=== PATIENT | female | born 1985 | race American Indian/Alaskan Native ===

== ENCOUNTER 2021-08-11 12:12 | Outpatient (CLI) | payer MEDICAID ==
[2021-08-11] MEDS ORDERED: LACTATED RINGERS 1,000 ML ONE (15:11)
[2021-08-11] MEDS ORDERED: ONDANSETRON 4 MG/2 ML INJ IV NR (15:35)
[2021-08-11] MEDS ORDERED: LACTATED RINGERS 1000 ML IV SOLN IV SCH (16:00)
[2021-08-11 18:26] VITALS: BP 113/60
== END 2021-08-11 18:33 | disposition home or self-care (01) ==
LOC: TRG 12:12 → APU 12:12 → TRG 18:33
PROVIDERS: ATTEND Obstetrics & Gynecology
DX: O26.893 Other specified pregnancy related conditions, third trimester (principal); R10.2 Pelvic and perineal pain; R25.2 Cramp and spasm; O21.2 Late vomiting of pregnancy; Z3A.30 30 weeks gestation of pregnancy
CPT/HCPCS: 59025; 96365; J2405; 96360; 96361; 96374

== ENCOUNTER 2021-09-04 10:42 | Outpatient (CLI) | payer MEDICAID ==
[2021-09-04 11:34] VITALS: BP 117/63
[2021-09-04 12:20] LABS: Bilirubin,Urine NEG (Negative); Blood,Urine NEG (Negative); Color,Urine Yellow (Yellow); Protein,Urine <15 mg/dL mg/dL (Negative); Urobilinogen,Urine < 2.0 mg/dL (<2.0)
[2021-09-04 12:40] LABS: Bacteria,Urine 2+ /HPF (Negative); Hyaline Casts,Urine 2 /LPF; Mucus,Urine FEW /HPF
[2021-09-04] MEDS ORDERED: LACTATED RINGERS 500 ML IV ONE (13:00)
== END 2021-09-04 15:36 | disposition home or self-care (01) ==
LOC: TRG 10:42 → APU 10:44 → TRG 15:36
PROVIDERS: ATTEND Obstetrics & Gynecology
DX: O42.913 Preterm premature rupture of membranes, unspecified as to length of time between rupture and onset of labor, third trimester (principal); Z3A.33 33 weeks gestation of pregnancy
CPT/HCPCS: 36415; 59025; 81001; 84112; 87086

== ENCOUNTER 2021-10-11 13:36 | Outpatient (CLI) | payer MEDICAID ==
[2021-10-11 14:14] VITALS: BP 133/87
--- NOTE | 2021-10-11 15:16 | Ultrasound Report ---
ULTRASOUND OBSTETRIC LIMITED ULTRASOUND BIOPHYSICAL PROFILE INDICATION / CLINICAL INFORMATION: decreased fm. Clinical Gestational Age (GA): 38.6 weeks.days COMPARISON: None available. FINDINGS: BREATHING MOVEMENT = 2 GROSS BODY MOVEMENT = 2 TONE = 2 QUALITATIVE AMNIOTIC FLUID VOLUME = 2 TOTAL BIOPHYSICAL SCORE = 8/8 HEART RATE (beats per minute): 154 AMNIOTIC FLUID INDEX (cm) = 7.6 (normal = 7-24 cm) PRESENTATION: Cephalic. ADDITIONAL FINDINGS: None. IMPRESSION: 1. Biophysical Score = 8/8 Signer Name: Harley Quiroz MD Signed: 10/11/2021 3:12 PM Workstation Name: [email or web address]
== END 2021-10-11 15:10 | disposition home or self-care (01) ==
LOC: TRG 13:36 → APU 13:37 → TRG 15:10
PROVIDERS: ATTEND Obstetrics & Gynecology
DX: O36.8130 Decreased fetal movements, third trimester, not applicable or unspecified (principal); Z3A.38 38 weeks gestation of pregnancy
CPT/HCPCS: 59025; 76815; 76819

== ENCOUNTER 2021-10-19 15:33 | Outpatient (CLI) | payer MEDICAID ==
[2021-10-19 16:49] VITALS: BP 122/73
== END 2021-10-19 19:24 | disposition home or self-care (01) ==
LOC: TRG 15:33 → APU 15:38 → TRG 19:24
PROVIDERS: ATTEND Obstetrics & Gynecology
DX: O42.92 Full-term premature rupture of membranes, unspecified as to length of time between rupture and onset of labor (principal); Z3A.40 40 weeks gestation of pregnancy
CPT/HCPCS: 36415; 84112

== ENCOUNTER 2021-10-22 21:09 | Inpatient (IN) | payer MEDICAID ==
[2021-10-22] MEDS ORDERED: LACTATED RINGERS 2,000 ML ONE (23:06)
[2021-10-22 23:43] LABS: Hematocrit 31.4 % (30.3-42.9); Hemoglobin 10.2 gm/dl (10.1-14.3); Mean Corpuscular HGB Conc 32 % (30-34); Red Blood Count 4.87 M/mm3 (3.65-5.03)
[2021-10-22] MEDS ORDERED: LOPERAMIDE 2 MG CAP PO PRN (23:43)
[2021-10-22] MEDS ORDERED: miSOPROStol 200 MCG TAB PR PRN (23:43)
[2021-10-22] MEDS ORDERED: TERBUTALINE 1 MG/1 ML INJ SUB-Q PRN (23:43)
[2021-10-22] MEDS ORDERED: LIDOCAINE (2%) 20 MG/1 ML VIAL 20 ML MDV INFILTRATI ONE (23:43)
[2021-10-22] MEDS ORDERED: ONDANSETRON 4 MG/2 ML INJ IV PRN (23:43)
[2021-10-22] MEDS ORDERED: METHYLERGONOVINE MALEATE 0.2 MG/ML VIAL IM PRN (23:43)
[2021-10-22] MEDS ORDERED: PENICILLIN G POTASSIUM 5 MIL.UNITS in SODIUM CHLORIDE 0.9% 50 ML IV ONE (23:43)
[2021-10-22] MEDS ORDERED: CARBOPROST TROMETHAMINE 250 MCG/1 ML INJ IM PRN (23:43)
[2021-10-22] MEDS ORDERED: ACETAMINOPHEN 325 MG TAB PO PRN (23:43)
[2021-10-22] MEDS ORDERED: OXYTOCIN 10 UNIT/1 ML INJ IM PRN (23:43)
[2021-10-22] MEDS ORDERED: MINERAL OIL 30 ML ORAL LIQD PO PRN (23:43)
[2021-10-22] MEDS ORDERED: BUTORPHANOL 2 MG/1 ML INJ IV PRN ×2 (23:43)
[2021-10-22] MEDS ORDERED: NALOXONE 0.4 MG/1 ML INJ IV PRN (23:43)
[2021-10-22] MEDS ORDERED: ePHEDrine SULFATE 50 MG/1 ML INJ IV PRN (23:43)
[2021-10-22] MEDS ORDERED: LACTATED RINGERS 1,000 ML IV SCH (23:45)
[2021-10-22] MEDS ORDERED: OXYTOCIN DRIP 30 UNITS/500 ML BAG IV SCH ×2 (23:45)
[2021-10-22 23:55] LABS: Color,Urine Colorless (Yellow)
--- NOTE | 2021-10-22 23:59 | Ultrasound Report ---
ULTRASOUND BIOPHYSICAL PROFILE Ultrasound obstetrical follow-up INDICATION / CLINICAL INFORMATION: WELL BEING. COMPARISON: None available. FINDINGS: BREATHING MOVEMENT = 0 GROSS BODY MOVEMENT = 2 TONE = 2 QUALITATIVE AMNIOTIC FLUID VOLUME = 2 TOTAL BIOPHYSICAL SCORE = 10/02 AMNIOTIC FLUID INDEX (cm) = 8.7 PRESENTATION: Cephalic. HEART RATE (beats per minute): 141 Biparietal diameter measures 38 weeks and 4 days. Head circumference measures 40 weeks and 1 day. Abd ominal circumference measures 38 weeks and 6 days femur length measures 38 weeks and 4 days. Estimated weight is 3625 g IMPRESSION: 1. biophysical profile = 08/02 2. Single live intrauterine with ultrasound age of 39 weeks and 0 days. Signer Name: Matt Anne MD Signed: 10/22/2021 11:54 PM Workstation Name: [email or web address]
[2021-10-23 00:02] LABS: RBC,Urine < 1.0 /HPF (0.0-6.0)
[2021-10-23 00:03] LABS: Alanine Aminotransferase 15 units/L (7-56)
[2021-10-23 00:15] LABS: Uric Acid 4.4 mg/dL (3.5-7.6)
[2021-10-23 00:17] LABS: Mean Corpuscular Volume 65 fl (79-97); Platelet Count 185 K/mm3 (140-440); Red Cell Distribution Width 20.4 % (13.2-15.2)
--- NOTE | 2021-10-23 00:40 | History and Physical Report ---
History of Present Illness Date of examination: 10/23/21 Date of admission: 10/22/21 23:43 Chief complaint: Contractions Past History Past Medical History: no pertinent history, other (Sickle cell trait) Past Surgical History: D&C Family/Genetic History: diabetes, cancer, sickle cell/trait - Obstetrical History Expected Date of Delivery: 10/19/21 Actual Gestation: 40 Week(s) 4 Day(s) : 4 Para: 4 Hx # Term Pregnancies: 1 Number of Pregnancies: 1 Spontaneous Abortions: 0 Induced : 1 Number of Living Children: 2 #1 Gender: Male year: , Birthweight: 5 lb 14.4 oz Method of Delivery: Vaginal Gestational age at delivery: 35 #2 Infant Gender: Male year: , Birthweight: 7 lb 11.2 oz Method of Delivery: Vaginal Gestational age at delivery: 40 Medications and Allergies Allergies Allergy/AdvReac Type Severity Reaction Status Date / Time No Known Allergies Allergy Unverified 08/11/21 15:30 Active Meds: Active Medications Acetaminophen (Acetaminophen 325 Mg Tab) 650 mg PO Q4H PRN PRN Reason: Pain, Mild (1-3) Butorphanol Tartrate (Butorphanol 2 Mg/1 Ml Inj) 1 mg IV Q2H PRN PRN Reason: Pain, Moderate(4-6) LABOR PAIN Butorphanol Tartrate (Butorphanol 2 Mg/1 Ml Inj) 2 mg IV Q2H PRN PRN Reason: Pain , Severe (7-10) Carboprost Tromethamine (Carboprost Tromethamine 250 Mcg/1 Ml Inj) 250 mcg IM ONCE PRN PRN Reason: Uterine Bleeding Ephedrine Sulfate (Ephedrine Sulfate 50 Mg/1 Ml Inj) 10 mg IV Q2M PRN PRN Reason: Hypotension Oxytocin/Sodium Chloride (Pitocin/Ns 30 Unit/500ml) 30 units in 500 mls @ 2 mls/hr IV TITR RAFAEL; Protocol Lactated Ringer's (Lactated Ringers) 1,000 mls @ 125 mls/hr IV DIRECT RAFAEL Oxytocin/Sodium Chloride (Pitocin/Ns 30 Unit/500ml) 30 units in 500 mls @ 40 mls/hr IV TITR RAFAEL; Protocol Penicillin G Potassium 2.5 mil (.units/ Sodium Chloride) 50 mls @ 100 mls/hr IV Q4H RAFAEL; Protocol Loperamide HCl (Loperamide 2 Mg Cap) 2 mg PO ONCE PRN PRN Reason: give with Hemabate Methylergonovine Maleate (Methylergonovine Maleate 0.2 Mg/Ml Vial) 0.2 mg IM ONCE PRN PRN Reason: Uterine Bleeding Mineral Oil (Mineral Oil 30 Ml Oral Liqd) 30 ml PO QHS PRN PRN Reason: Constipation Misoprostol (Misoprostol 200 Mcg Tab) 800 mcg AR ONCE PRN PRN Reason: Uterine Bleeding Naloxone HCl (Naloxone 0.4 Mg/1 Ml Inj) 0.1 mg IV Q2MIN PRN PRN Reason: Res Rate </= 8 or 02 SAT < 92% Ondansetron HCl (Ondansetron 4 Mg/2 Ml Inj) 4 mg IV Q8H PRN PRN Reason: Nausea And Vomiting Oxytocin (Oxytocin 10 Unit/1 Ml Inj) 10 unit IM ONCE PRN PRN Reason: Uterine Bleeding Terbutaline Sulfate (Terbutaline 1 Mg/1 Ml Inj) 0.25 mg SUB-Q ONCE PRN PRN Reason: Hyperstimulation/Hypertonicity - Vital Signs Vital signs: Vital Signs Temp 98.3 F 10/22/21 21:26 Temp Pulse Resp BP Pulse Ox 97.9 F 107 H 17 125/79 99 10/22/21 23:35 10/23/21 00:32 10/22/21 23:35 10/22/21 23:37 10/23/21 00:32 - Physical Exam Breasts: Positive: deferred Cardiovascular: Regular rate Lungs: Positive: Clear to auscultation Abdomen: Positive: normal appearance, soft Genitourinary (Female): Positive: normal external genitalia Vagina: Positive: normal moisture Uterus: Positive: enlarged Extremities: Positive: normal Deep Tendon Reflex Grade: Normal +2 Results Result Diagrams: 10/22/21 23:00 10/22/21 23:00 Abnormal lab results 10/22/21 10/22/21 Range/Units 23:00 23:00 MCV 65 L (79-97) fl MCH 21 L (28-32) pg RDW 20.4 H (13.2-15.2) % Creatinine 0.5 L (0.6-1.2) mg/dL Lactate Dehydrogenase 291 H (91-180) units/L All other labs normal. Assessment and Plan A: @ 40.4wks contractions elevated bp GBS pos BPP 6/8 P: Admit to L&D Continuous TOCO/EFM PIH labs Antibiotic admin for GBS Anticipated delivery
[2021-10-23] MEDS ORDERED: NALOXONE 0.4 MG/1 ML INJ IV PRN (01:14)
[2021-10-23] MEDS ORDERED: ePHEDrine SULFATE 50 MG/1 ML INJ IV PRN (01:14)
--- NOTE | 2021-10-23 01:17 | Anesthesia Consultation ---
Anesthesia Consult and Med Hx Date of service: 10/23/21 - Airway Anesthetic Teeth Evaluation: Poor ROM Head & Neck: Adequate Mental/Hyoid Distance: Adequate Mallampati Class: Class II Intubation Access Assessment: Probably Good - Pulmonary Exam CTA: Yes - Cardiac Exam Cardiac Exam: RRR - Pre-Operative Health Status ASA Pre-Surgery Classification: ASA2 Proposed Anesthetic Plan: Epidural - Pulmonary Hx Smoking: No Hx Asthma: No COPD: No Hx Pneumonia: No - Cardiovascular System Hx Hypertension: No - Central Nervous System Hx Seizures: No Hx Psychiatric Problems: No - Endocrine Hx Renal Disease: No Hx End Stage Renal Disease: No Hx Hypothyroidism: No Hx Hyperthyroidism: No - Hematic Hx Anemia: No Hx Sickle Cell Disease: No - Other Systems Hx Alcohol Use: Yes (social prior to ) Hx Substance Use: No Hx Obesity: Yes
--- NOTE | 2021-10-23 01:19 | Progress Note ---
Labor Epidural - Labor Epidural Start Time: 00:44 Stop Time: 01:00 Performed by:: DE BERMUDEZ Procedure: Patient is requesting a laboring epidural for laboring pain. Patient IDed, H&P reviewed, all questions and concerns were answered, and consent was signed. Timeout was performed at bedside. Patient in sitting position. Sterile prep and drape was performed. [3] ml of 1% lidocaine skin wheal at L[3]- L [4]. 17- gauge Tuohy epidural needle was advanced to loss of resistance with saline technique 6cm. Single dural perforation via 25 guage spinal needle placed through the shaft of Epidural needle. Positive CSF via spinal needle. Negative CSF negative blood via Epidural needle. Epidural catheter advanced to [10] centimeters. [NEGATIVE] Aspiration [NEGATIVE] test dose. Negative Paresthesia. Sterile dressing applied. Patient tolerated procedure.
[2021-10-23] MEDS ORDERED: fentaNYL-BUPIV 2 MCG/ML-0.125% 200 MCG/100 ML BAG EPIDURAL SCH (02:00)
[2021-10-23] MEDS ORDERED: PENICILLIN G POTASSIUM 2.5 MIL.UNITS in SODIUM CHLORIDE 0.9% 50 ML IV SCH (04:00)
--- NOTE | 2021-10-23 05:52 | Procedure Note ---
OB Delivery Note - Delivery Date of Delivery: 10/23/21 Surgeon: ABE OCONNELL Estimated blood loss: 200cc - Vaginal Delivery presentation: vertex Delivery position: OA Intrapartum events: shoulder dystocia Delivery induction: oxytocin Delivery augmentation: rupture of membranes Delivery monitor: external FHT, external uterine, internal FHT Route of delivery: Delivery placenta: spontaneous Delivery cord: 3 umbilical vessels Episiotomy: none Delivery laceration: none Anesthesia: epidural Delivery comments: I was called to room by charge nurse for FHR in the 50-60's and pt 9cm per CNMW and when I entered room pt was in knee chest position with oxygen on her face. Scalp stimulation done with good response. With the next contraction, pt counseled on pushing like having a bowel movement and with both my index and 3rd finger the cervix was reduced without difficulty. SAVD of viable male infant with shoulder dystocia relieved in Kaci position and suprapubic pressure from Brenden (charge nurse) and modified Ritgen's maneuver followed by delivered of right posterior shoulder with counter clockwise screw maneuver, infant suctioned, stimulated and cord clamped and baby taken to warmer and treated by NICU team. Umbilical artery cord gas sent with pH 7.15 and BE -4.7. Large amount of meconium passed on floor noted after baby delivered and transported to warmer. Spontaneous delivery of intact placenta with 3vessel cord. Pt sustained no lacerations when cervix visualized using right angle and ring forceps and no lacerations to perineum either. Bimanual exam done and fundus firm and Pt receiving IV pitocin. Mom and baby stable. EFW 3630g - A at 1 minute: 5 at 5 minutes: 7 Infant Gender: Male (Umb Artery gas pH 7.15 and BE -4.7; wt 3630g)
--- NOTE | 2021-10-23 05:53 | Event Note ---
Date: 10/23/21 (0500) Patient having decel post rupture Vag exam /-1. Assisted Rn with position changes, fluid bolus, pitocin at 2mu dc'ed, and oxygen NR. Decel still down to 60's x3 min, ISE placed, pt was placed in hand and knee position. VE: still same, attempted to push, pt not pushing well. Dr. Payne called. Once MD entered, she assisted pt on her back, bed broken down, cervix was reduced and MD delivered infant.
[2021-10-23 05:55] LABS: ABG Base Excess -4.7 mmol/L (-2.0-3.0); ABG HCO3 26.2 mmol/L (20.0-26.0); ABG Methemoglobin 0.9 % (0.0-1.5); ABG Oxygen Saturation 17.9 % (95.0-99.0); ABG PCO2 76.7 mm Hg
[2021-10-23 05:58] LABS: ABG PH 7.151 pH Units (7.350-7.450); ABG PO2 13.7 mm Hg (80.0-90.0)
[2021-10-23] MEDS ORDERED: diphenhydrAMINE 25 MG CAP PO PRN ×2 (08:00→09:55)
[2021-10-23] MEDS ORDERED: ACETAMINOPHEN 325 MG TAB PO PRN (09:55)
[2021-10-23] MEDS ORDERED: WITCH HAZEL/ GLYCERIN PAD TP PRN (09:55)
[2021-10-23] MEDS ORDERED: ONDANSETRON 4 MG/2 ML INJ IV PRN (09:55)
[2021-10-23] MEDS ORDERED: oxyCODONE /ACETAMINOPHEN 5-325MG TAB PO PRN (09:55)
[2021-10-23] MEDS ORDERED: HYDROCORTISONE 25 MG RECTAL SUPP PR PRN (09:55)
[2021-10-23] MEDS ORDERED: OXYTOCIN DRIP 30 UNITS/500 ML BAG IV SCH (09:55)
[2021-10-23] MEDS ORDERED: LANOLIN/ZINC/DIMETHICONE (LANSINOH) 7 GM TP PRN (09:55)
[2021-10-23] MEDS ORDERED: PROMETHAZINE 25 MG RECT SUPP PR PRN (09:55)
[2021-10-23] MEDS ORDERED: PROMETHAZINE 25 MG TAB PO PRN (09:55)
[2021-10-23] MEDS ORDERED: BENZOCAINE/MENTHOL 20/0.5% TOP SPRAY 56 GM TP PRN (09:55)
[2021-10-23] MEDS ORDERED: MAGNESIUM HYDROXIDE (MOM) ORAL LIQD UDC PO PRN (09:55)
[2021-10-23] MEDS: PRENATAL VIT27-FE FUMARATE-FOLIC ACID VIT TAB PO SCH (11:55)
[2021-10-23] MEDS: IBUPROFEN 800 MG TAB PO SCH ×2 (11:55→18:55)
[2021-10-24 11:00] LABS: Hemoglobin 9.1 gm/dl (10.1-14.3); Mean Corpuscular HGB Conc 32 % (30-34); Platelet Count 177 K/mm3 (140-440); Red Blood Count 4.43 M/mm3 (3.65-5.03)
[2021-10-24 11:20] LABS: Mean Corpuscular Volume 66 fl (79-97); Red Cell Distribution Width 20.4 % (13.2-15.2)
[2021-10-24] MEDS: IBUPROFEN 800 MG TAB PO SCH (15:31)
[2021-10-24] MEDS: PRENATAL VIT27-FE FUMARATE-FOLIC ACID VIT TAB PO SCH (15:31)
--- NOTE | 2021-10-24 18:46 | Discharge Summary ---
Providers - Providers Date of Admission: 10/22/21 23:43 Date of discharge: 10/24/21 Attending physician: ABE OCONNELL Primary care physician: ABE OCONNELL Hospitalization Reason for admission: active labor Delivery: Episiotomy: none Laceration: none Other procedures: none complications: none Discharge diagnosis: IUP at term delivered, other (covid positive) [place] baby: female Condition at discharge: Good Disposition: 01 HOME / SELF CARE / HOMELESS Plan - Discharge Medications Prescriptions: Ibuprofen [Motrin 800 MG tab] 800 mg PO Q8HR #30 tablet - Provider Discharge Summary Activity: no sex for 6 weeks, no heavy lifting 4 weeks, no strenuous exercise Diet: routine Instructions: routine Additional instructions: [] Smoking cessation referral if applicable(refer to patient education folder for contact #) [] Refer to [facility]'s [facility] Center Booklet Call your doctor immediately for: * Fever > 100.5 * Heavy vaginal bleeding ( >1 pad per hour) * Severe persistent headache * Shortness of breath * Reddened, hot, painful area to leg or breast * Drainage or odor from incision. * Keep incision clean and dry at all times and follow doctor's instructions regarding bathing/showering - Follow up plan Follow up: ABE OCONNELL MD [Primary Care Provider] - 6 Weeks
[2021-10-25 02:26] VITALS: BP 133/90
== END 2021-10-24 22:53 | disposition home or self-care (01) | DRG 774 ==
LOC: TRG 21:09 → APU 21:10 → LD 23:25 → TRG 23:43 → OB 10-23 09:26
PROVIDERS: ADMIT Obstetrics & Gynecology; ATTEND Obstetrics & Gynecology
PROC: 10E0XZZ Delivery of Products of Conception, External Approach (ICD-10-PCS; principal; 2021-10-23)
PROC: 3E0R3BZ Introduction of Anesthetic Agent into Spinal Canal, Percutaneous Approach (ICD-10-PCS; 2021-10-23)
PROC: 00HU33Z Insertion of Infusion Device into Spinal Canal, Percutaneous Approach (ICD-10-PCS; 2021-10-23)
PROC: 3E033VJ Introduction of Other Hormone into Peripheral Vein, Percutaneous Approach (ICD-10-PCS; 2021-10-23)
DX: O66.0 Obstructed labor due to shoulder dystocia (principal); O98.52 Other viral diseases complicating childbirth; O99.824 Streptococcus B carrier state complicating childbirth; Z37.0 Single live birth; Z3A.40 40 weeks gestation of pregnancy; U07.1 COVID-19
CPT/HCPCS: 36415; 76816; 76819; 81001; 82565; 82803; 83615; 84450; 84460; 84550; 85027; 86592; 86850; 86900; 86901; 88307; G0378; J3490; J2405; J2540; J2590; U0003